=== PATIENT | female | born 1945 | race Caucasian/White ===

== ENCOUNTER 2019-11-16 12:51 | Outpatient (RCR) | payer MEDICARE, BC | END 2020-02-14 | disposition home or self-care (01) | LOC: WSST | DX: R13.12 Dysphagia, oropharyngeal phase (principal) ==

== ENCOUNTER → 2019-11-23 | Outpatient (CLI) | payer MEDICARE, BC | LOC: COL.RAD 14:51 | DX: R13.10 Dysphagia, unspecified (principal) ==

== ENCOUNTER → 2020-07-25 | Outpatient (CLI) | payer MEDICARE, BC | LOC: COL.PUL 09:49 | DX: J45.991 Cough variant asthma (principal) | CPT/HCPCS: J7674 ==